=== PATIENT | male | born 1985 | race Caucasian/White ===

== ENCOUNTER 2024-01-04 08:28 | Inpatient (IN) | payer BC, SELFPAY ==
[2024-01-04] VITALS (9 sets, daily range): BP systolic 130–143; BP diastolic 89–109; PULSE 62–112; RESP 16–18; TEMP 36.4–37.1; O2SAT 98–99; BMI 23.7
--- NOTE | 2024-01-04 08:38 | EX.ED.SAOD ---
HPI History of Present Illness Chief Complaint: Substance Abuse Informant: patient Narrative Narrative: Here to help with alcohol detox. He is drink for years. He drinks daily more so recently. 8-10 twisted teas daily. He sometimes wakes up with tremors. No alcohol withdrawal seizure history. Last drink was 7 PM yesterday. Marijuana use 3 times a week. Reports anxiety depression symptoms not formally diagnosed. He has been had mandatory AA years ago. He has not seen a counselor or psychiatrist. He denies any suicidal homicidal ideations. Denies any auditory or visual hallucinations. Has not had alcohol assistance programs in the past. [facility] Medical History Collar bone fracture Home Medications NK 01/04/24 [History Last Taken Unknown] Allergy/AdvReac Type Severity Reaction Status Date / Time prednisone AdvReac Severe legs give Verified 01/04/24 08:58 out Surgical History History of right hip replacement Social History (Updated 01/04/24 @ 09:[address] Rajani Christian DO) household members: family Smoking Status: Current every day smoker tobacco type: cigarettes and smokeless tobacco alcohol intake: current alcohol intake frequency: 3 or more drinks per day Previous attempts at quittin details: 8-10 twisted teas daily substance use type: marijuana and other details: Huffs substances ROS ROS ED Constitutional Constitutional ED: Denies chills, fever(s) or sweats Eyes Eyes: Denies change in vision ENT ENT ED: Denies dysphagia or sore throat Cardiovascular Cardiovascular: Denies chest pain, leg edema, palpitations or racing heartbeat Respiratory/Chest Respiratory/Chest: Denies cough, dyspnea or dyspnea on exertion Gastrointestinal Gastrointestinal: Denies abdominal pain, diarrhea, nausea or vomiting Genitourinary Genitourinary ED: Denies dysuria, hematuria or urinary frequency Musculoskeletal Musculoskeletal: Denies back pain, extremity pain or neck pain Integumentary Denies rash or wounds Neurologic Neurologic: Denies headache(s), paresthesias or weakness EXAM Physical Exam Const Vital Signs: 01/04/24 08:29 Temperature 97.6 F L Temperature Source Temporal Pulse Rate 112 H Respiratory Rate 16 Blood Pressure 142/109 H Blood Pressure Mean 120 Pulse Ox 99 Oxygen Delivery Method Room Air Positive well nourished and well developed General Appearance ED: well developed and NAD HEENT Reports moist mucous membranes normocephalic and atraumatic Eyes PERRL, EOMs intact bilaterally and conjunctivae normal General Eye ED: Yes normal appearance of both eyes Neck no lymphadenopathy and supple General: Negative for tenderness Chest Wall Chest: Negative for tenderness Resp normal respiratory effort and normal air movement Effort and Inspection: symmetric chest movement; Negative for respiratory distress Cardio regular rhythm and no murmurs Rate: tachycardic Peripheral Pulses: pulses 2+ throughout GI normal to inspection, nondistended, normoactive bowel sounds and non-tender Palpation: Negative for guarding or rebound tenderness present Back/Spine no CVA tenderness and no thoracic nor lumbar tenderness Extremity normal to inspection General Extremety ED: Negative for edema or tenderness General Extremity: Negative for edema Neuro oriented x3 and no sensory deficits noted Sensorium / Orientation: awake and alert Skin no rashes or lesions noted and no wounds MDM MDM MDM Narrative Medical decision making narrative: Interventions / MDM: Differential diagnosis: Alcohol dependence, alcohol withdrawal Diagnosis considered but do not suspect: N/A My EKG interpretation: N/A Imaging independently reviewed and interpreted by myself: N/A External documents reviewed: N/A Test considered but not ordered:N/A ED course: Tachycardic on arrival, nontoxic, no tremors. Labs were drawn. Will plan for admission to assist with alcohol dependence. I discussed with hospitalist Dr. Rajani Crhistian for admission. Labs 3 potassium 3.1 creatinine 1.32. Oral replacement given. Fluids were started with renal insufficiency. Alcohol returned negative. Patient will be admitted to medical floor for further management. Re-evaluation: stable Disposition discussed with patient/family/significant other: Patient Case discussed with consulting clinician: Hospitalist This note was generated with [employer] dictation software. It may contain incorrect words, spelling, and punctuation that were not noted in checking the note before signing. Lab Data Attestation: I reviewed the patient's lab results. Labs: Laboratory Results - last 24 hr 01/04/24 08:45 WBC 11.1 H RBC 5.65 Hgb 17.3 H Hct 50.9 MCV 90.1 MCH 30.6 MCHC 34.0 RDW Std Deviation 43.8 RDW Coeff of Srinivas 13.2 Plt Count 272 MPV 9.6 Immature Gran % (Auto) 0.400 Neut % (Auto) 77.4 H Lymph % (Auto) 13.0 L [place] % (Auto) 6.9 Eos % (Auto) 1.6 Baso % (Auto) 0.7 Absolute Neuts (auto) 8.6 H Absolute Lymphs (auto) 1.44 Nucleated RBC % 0 Sodium 139 Potassium 3.1 L Chloride 105 Carbon Dioxide 26.0 Anion Gap 8 BUN 6 L Creatinine 1.32 H Estim Creat Clear Calc 83.28 Est GFR (MDRD) Af Amer 78 Est GFR (MDRD) Non-Af 64 BUN/Creatinine Ratio 4.5 L Glucose 132 H Calcium 9.6 Total Bilirubin 2.00 H Direct Bilirubin 0.38 H AST 23 ALT 24 Alkaline Phosphatase 99 Total Protein 8.5 H Albumin 4.4 Globulin 4.1 Ethyl Alcohol < 3.0 Discharge Plan Dx/Rx/DC Orders Clinical Impression: Alcohol dependence, Renal insufficiency, Hypokalemia Disposition Disposition: Acute Care [facility] Discharge Date/Time: 01/04/24 11:06
[2024-01-04 08:56] LABS: Absolute Lymphocyte Count 1.44 X10^3/uL (0.83-4.51); Absolute Neutrophil Count 8.6 X10^3/uL (2.0-7.7); Basophil# 0.08 X10^3/uL; Basophil% 0.7 % (0-1); Eosinophil# 0.18 X10^3/uL; Eosinophils% 1.6 % (0-5); Hematocrit 50.9 % (40-54); Hemoglobin 17.3 g/dL (13.0-16.5); Lymphocyte # 1.44 X10^3/ul (0.83-4.51); Mean Corpuscular Hgb 30.6 pg (27.0-32.0); Mean Corpuscular Volume 90.1 fL (80-94); Mean Platelet Vol. 9.6 fl (6.2-12.0); Monocyte# 0.76 X10^3/uL; Monocyte% 6.9 % (0-10); NRBC Flagged by Analyzer 0 % (0-5); Neutrophil # 8.56 X10^3/uL (2.7-7.7); Neutrophil % 77.4 % (47-70); Platelet Count 272 K/mm3 (150-450); RBC Distribution Width CV 13.2 % (11.6-14.6); RBC Distribution Width SD 43.8 fl (35.1-43.9); Red Blood Count 5.65 M/mm3 (4.6-6.2); White Blood Count 11.1 K/mm3 (4.4-11.0)
--- NOTE | 2024-01-04 09:03 | HP.PCM.HOS_ITS ---
HPI - General General Date of Admission: 01/04/24 Date of Service: 01/04/24 Chief Complaint: EtOH Detox HPI Narrative BOZENA HERNANDEZ, is a 38 M who presented to the emergency department at [facility] on 01/04/2024 requesting detoxification from alcohol. Patient admits he has been drinking for years and typically drinks 8-10 twisted teas daily. He does report that he intermittently will wake up with tremors but never has had any withdrawal seizures. His last drink was 7 PM the day prior to admission. He also admits to marijuana use about 3 times weekly. He has significant anxiety and depression type symptoms but has never been formally diagnosed and has never been through counseling or is seeing a psychiatrist. He had mandatory AA several years ago but has not ever been through an alcohol assistance program in the past. [facility] Medical History Collar bone fracture Home Medications NK 01/04/24 [History Last Taken Unknown] Allergy/AdvReac Type Severity Reaction Status Date / Time prednisone AdvReac Severe legs give Verified 01/04/24 08:58 out Surgical History History of right hip replacement Social History Smoking Status: Current every day smoker tobacco type: smokeless tobacco Vital Signs Vital Signs Vital Signs: 01/04/24 08:29 Temperature 97.6 F L Temperature Source Temporal Pulse Rate 112 H Respiratory Rate 16 Blood Pressure 142/109 H Blood Pressure Mean 120 Pulse Ox 99 Oxygen Delivery Method Room Air Weight Weight: 79.379 kg Body Mass Index (BMI) 23.7 Results Lab / Micro Data 01/04/24 08:45 01/04/24 08:45 Labs: Laboratory Results - last 24 hr 01/04/24 08:45: WBC 11.1 H, RBC 5.65, Hgb 17.3 H, Hct 50.9, MCV 90.1, MCH 30.6, MCHC 34.0, RDW Std Deviation 43.8, RDW Coeff of Srinivas 13.2, Plt Count 272, MPV 9.6, Immature Gran % (Auto) 0.400, Neut % (Auto) 77.4 H, Lymph % (Auto) 13.0 L, [place] % (Auto) 6.9, Eos % (Auto) 1.6, Baso % (Auto) 0.7, Absolute Neuts (auto) 8.6 H, Absolute Lymphs (auto) 1.44, Nucleated RBC % 0
--- NOTE | 2024-01-04 09:03 | PCM.HP.STD ---
HPI - General General Date of Admission: 01/04/24 Date of Service: 01/04/24 Chief Complaint: EtOH Detox HPI Narrative BOZENA HERNANDEZ, is a 38 M who presented to the emergency department at [facility] on 01/04/2024 requesting detoxification from alcohol. Patient admits he has been drinking for years and typically drinks 8-10 twisted teas daily. He does report that he intermittently will wake up with tremors but never has had any withdrawal seizures. His last drink was 7 PM the day prior to admission. He also admits to marijuana use about 3 times weekly. He has significant anxiety and depression type symptoms but has never been formally diagnosed and has never been through counseling or is seeing a psychiatrist. He had mandatory AA several years ago but has not ever been through an alcohol assistance program in the past. He states the longest he was sober was about 6 months while he was in [facility] but this was several years ago. He also reports that he feels depressed but does not have any suicidal or homicidal ideations. He has never been on any medications for depression. Patient also admits to huffing substances because it helps him sleep and helps treat his depression and anxiety. Vital signs on presentation showed temperature 97.6, heart rate 112, blood pressure 142/109, respirate 16 oxygen saturations are 99% on room air. CBC shows a mild leukocytosis and elevated hemoglobin at 17.3. Patient smokes about 2 packs of cigarettes daily so this is either he will contraction from mild dehydration or this may be his baseline. We have no previous labs to compare. He does appear to have some mild ADONAY with a creatinine of 1.32 and hypokalemia with a potassium of 3.1 on his BMP. Liver functions are still pending. At the alcohol level was less than 3. [facility] Medical History Collar bone fracture Home Medications NK 01/04/24 [History Last Taken Unknown] Allergy/AdvReac Type Severity Reaction Status Date / Time prednisone AdvReac Severe legs give Verified 01/04/24 08:58 out no significant family history Surgical History History of right hip replacement Social History (Updated 01/04/24 @ 09:[address] Rajani Gino, DO) household members: family Smoking Status: Current every day smoker tobacco type: cigarettes Smoking packs per day: 2 Smoking cigarettes per day: 40.0 and smokeless tobacco alcohol intake: current alcohol intake frequency: 3 or more drinks per day Previous attempts at quittin details: 8-10 twisted teas daily substance use type: marijuana and other details: Huffs substances ROS Constitutional Constitutional: Reports fatigue and malaise; Denies anorexia, change in weight, chills, fever(s), night sweats, weakness or other Eyes Eyes: Denies blurry vision, change in eye color, change in vision, discharge from eye(s), double vision, erythema, eye pain, loss of vision or other ENT HEENT: Denies abnormal hearing, dysphagia, ear pain, epistaxis, headache(s), hearing loss, nasal congestion, nasal discharge, post nasal drip, sinus pressure, sore throat or other Cardiovascular Cardiovascular: Denies chest pain, claudication, dyspnea on exertion, edema, lightheadedness, orthopnea, palpitations, paroxysmal nocturnal dyspnea, rapid heart rate, syncope or other Respiratory/Chest Respiratory/Chest: Denies cough, dyspnea, excessive phlegm production, hemoptysis, productive cough, shortness of breath at rest, shortness of breath with exertion, wheezing or other Gastrointestinal Gastrointestinal: Denies abdominal pain, coffee ground emesis, constipation, diarrhea, dyspepsia, hematemesis, hematochezia, loose stools, melena, nausea, vomiting or other Genitourinary Genitourinary: Denies burning urination, difficulty urinating, dysuria, hematuria, nocturia, urinary frequency, urinary hesitancy, urinary incontinence, urinary urgency or other Musculoskeletal Musculoskeletal: Reports back pain, joint pain and joint stiffness; Denies arthralgias, joint swelling, myalgias, neck pain or other Neurologic Neurologic: Denies abnormal gait, abnormal speech, confusion, disequilibrium, dizziness, focal weakness, headache(s), numbness, paresthesias, seizure-like activity, seizures, syncope, tingling, tremor(s) or other Psychiatric Psychiatric: Reports anxiety and depression; Denies homicidal ideation, suicidal ideation or other Endocrine Endocrinology: Denies change in body appearance, cold intolerance, excessive sweating, heat intolerance, polydipsia, polyuria or other Hematologic/Lymphatic Hematologic/Lymphatic: Denies anemia, easy bleeding, easy bruising, lymphadenopathy or other Allergic/Immunologic Allergic/Immunologic: Denies rhinitis, hives, eczemia, asthma or other Vital Signs Vital Signs Vital Signs: 01/04/24 08:29 Temperature 97.6 F L Temperature Source Temporal Pulse Rate 112 H Respiratory Rate 16 Blood Pressure 142/109 H Blood Pressure Mean 120 Pulse Ox 99 Oxygen Delivery Method Room Air Weight Weight: 79.379 kg Body Mass Index (BMI) 23.7 Physical Exam Const alert, oriented x3, no apparent distress, average body habitus and well nourished; Negative for healthy appearing Constitutional Narrative: Anxious appearing, middle-aged, white male, sitting up in bed, brother at bedside, patient appears comfortable and nontoxic General Appearance: cooperative HEENT normocephalic, head/scalp atraumatic, hearing grossly normal bilaterally and moist oral mucous membranes HEENT Narrative: Dentition is good, Mallampati is 2-3, no thrush Eyes PERRL, EOMs intact bilaterally and conjunctivae normal Eyes Narrative: No scleral icterus Neck no lymphadenopathy and supple Neck Narrative: Trachea midline, no thyroid enlargement Resp normal respiratory effort, no retractions, no use of accessory muscles and clear to auscultation bilaterally Auscultation: Negative for rales, rhonchi or wheezes Cardio regular rhythm, S1 normal heart sound, S2 normal heart sound, no murmurs, no rub, no gallops and no clicks Cardio Narrative: Mild tachycardia GI normal to inspection, nondistended, normoactive bowel sounds, soft to palpation and non-tender Extremity no clubbing, cyanosis or edema Extremity Narrative: Pedal pulses are 2+ Skin no rashes or lesions noted, no wounds, skin turgor normal, no jaundice, no petechiae and no mottling Neuro oriented x3, moves all extremities and no focal motor deficits Speech: speech normal Psych Psych Narrative: Eye contact is good, patient interacts appropriately but does appear quite anxious Mood & Affect: anxious Results Lab / Micro Data 01/04/24 08:45 01/04/24 08:45 Labs: Laboratory Results - last 24 hr 01/04/24 08:45: WBC 11.1 H, RBC 5.65, Hgb 17.3 H, Hct 50.9, MCV 90.1, MCH 30.6, MCHC 34.0, RDW Std Deviation 43.8, RDW Coeff of Srinivas 13.2, Plt Count 272, MPV 9.6, Immature Gran % (Auto) 0.400, Neut % (Auto) 77.4 H, Lymph % (Auto) 13.0 L, [place] % (Auto) 6.9, Eos % (Auto) 1.6, Baso % (Auto) 0.7, Absolute Neuts (auto) 8.6 H, Absolute Lymphs (auto) 1.44, Nucleated RBC % 0 Assessment & Plan Assessment/Plan (1) Hypokalemia: (2) Alcohol dependence: (3) Creatinine elevation: (4) Desire for detoxification: PLAN: Plan Alcohol abuse with pending withdrawal -Request for detoxification -Drinks 8-10 twisted teas daily -Never been through detox -Start phenobarbital taper -Thiamine and folate -Supportive medication for symptom management -CIWA protocol with as needed Ativan -180 consultation -Strongly would encourage inpatient treatment Hypokalemia -40 mEq p.o. potassium and repeat in a.m. -Check a.m. magnesium level Elevated serum creatinine -Baseline is unknown however was 1.32 on admission and suspect he may be dehydrated as his CBC looks hemoconcentrated -Will give IV fluids with LR x 1 L -Repeat lab in a.m. Depression/anxiety -Start Zoloft 75 mg nightly -Encouraged outpatient follow-up with counseling and possibly psychiatry Chronic low back pain -As needed Tylenol available -Recommend outpatient follow-up with orthopedic spine versus neurosurgery History of right hip replacement -Traumatic -Surgery was in 2018 -Patient attributes this to his ongoing musculoskeletal pain Polysubstance abuse -In addition alcohol patient also admits to marijuana use and huffing substances -Recommend cessation Tobacco abuse -Patient reports he smokes about 2 packs of cigarettes daily as well as uses smokeless tobacco -Nicotine patch made available next-recommend cessation DVT prophylaxis -Low risk -Recommend early and frequent ambulation CODE STATUS -Full code Charges/Coding Visit Charges Inpatient E&M: 94922 Init Hosp L2
[2024-01-04 09:13] LABS: Alcohol, Blood (Medical)-Serum < 3.0 mg/dL
[2024-01-04 09:15] LABS: Anion Gap 8 (5-15); BUN 6 mg/dL (7-18); BUN/Creat Ratio 4.5 RATIO (10-20); Calcium,Total 9.6 mg/dL (8.5-10.1); Chloride 105 mmol/L (98-107); Creatinine, Serum 1.32 mg/dL (0.70-1.30); EST Glomerular Filtration Rate 64 mL/min (>60); Est Glom Filt Rate - Afr Amer 78 mL/min (>60); Estimated Creatinine Clearance 83.28 ml/min; Glucose 132 mg/dL (74-106); Potassium 3.1 mmol/L (3.5-5.1); Sodium Level 139 mmol/L (136-145)
[2024-01-04 09:25] LABS: AST(SGOT) 23 U/L (15-37); Alanine Aminotransfer ALT/SGPT 24 U/L (16-61); Albumin, Serum 4.4 g/dL (3.2-5.0); Alkaline Phosphatase 99 U/L (45-117); Bilirubin, Direct 0.38 mg/dL (0.00-0.30); Globulin 4.1 g/dL (2.2-4.2); Protein, Total 8.5 g/dL (6.4-8.2)
[2024-01-04] MEDS: Potassium Chloride Oral Tablet 20 MEQ 40 MEQ PO (09:59)
[2024-01-04] MEDS: 0.9% Normal Saline (1000mL) 1,000 ML 150 ML IV (10:00)
[2024-01-04 10:09] LABS: Amphetamine Urine VISTA NEGATIVE (<1000 ng/mL); Barbiturate Urine VISTA NEGATIVE (< 200 ng/mL); Benzodiazepine Urine VISTA NEGATIVE (< 200 ng/mL); Cocaine Urine VISTA NEGATIVE (< 300 ng/mL); Ecstacy Urine VISTA NEGATIVE (< 500 ng/mL); Methadone Urine VISTA NEGATIVE (< 300 ng/mL); PCP Urine VISTA NEGATIVE (< 25 ng/mL); THC Urine VISTA NEGATIVE (< 50 ng/mL); Vista UDS pH Range 6
--- NOTE | 2024-01-04 11:47 | NURSING ---
pt states he drinks 8-12 (12oz) beers a day, last drink was yesterday), smokes marijuana approx 3 times a week (last use was about 3-4days ago), smokes 1.5 ppd of cigarettes, uses inhalant (duster) 4 cans throughout the days (last use last night).
[2024-01-04] MEDS: Lactated Ringers 1,000 ML 100 ML IV (11:55)
[2024-01-04] MEDS: Gabapentin 300 MG Capsule PO (11:58)
[2024-01-04] MEDS: Phenobarbital 32.4 MG Tablet 64.7999999999999972 MG PO ×3 (11:58→20:21)
[2024-01-04] MEDS: Acetaminophen 325 MG Tablet 650 MG PO ×2 (11:58→20:37)
[2024-01-04] MEDS: Dicyclomine 10 MG Capsule 20 MG PO (11:58)
--- NOTE | 2024-01-04 15:13 | NURSING ---
computer downtime approx [id number].
[2024-01-04] MEDS: hydrOXYzine PAM 25 MG Capsule 50 MG PO ×2 (15:52→20:37)
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
[2024-01-05] VITALS (8 sets, daily range): BP systolic 110–137; BP diastolic 70–93; PULSE 62–105; RESP 16–18; TEMP 36.2–36.6; O2SAT 93–99
[2024-01-05] MEDS: traZODone 100 MG Tablet PO (00:15)
[2024-01-05] MEDS: Phenobarbital 32.4 MG Tablet 64.7999999999999972 MG PO ×7 (00:15→23:31)
[2024-01-05 07:29] LABS: Anion Gap 8 (5-15); BUN 6 mg/dL (7-18); BUN/Creat Ratio 6.4 RATIO (10-20); Calcium,Total 8.6 mg/dL (8.5-10.1); Chloride 108 mmol/L (98-107); Creatinine, Serum 0.93 mg/dL (0.70-1.30); EST Glomerular Filtration Rate 96 mL/min (>60); Est Glom Filt Rate - Afr Amer 116 mL/min (>60); Estimated Creatinine Clearance 118.21 ml/min; Glucose 118 mg/dL (74-106); Magnesium 2.4 mg/dL (1.6-2.6); Potassium 3.3 mmol/L (3.5-5.1); Sodium Level 141 mmol/L (136-145)
[2024-01-05] MEDS: Sertraline 50 MG Tablet 75 MG PO (10:19)
[2024-01-05] MEDS: Potassium Chloride Oral Tablet 20 MEQ 60 MEQ PO (10:20)
[2024-01-05] MEDS: Thiamine Hydrochloride 100 MG Tablet PO (10:28)
[2024-01-05] MEDS: Folic Acid 1 MG Tablet PO (10:28)
--- NOTE | 2024-01-05 11:06 | ADDICTION ---
This commercial lines underwriter met with PT to conduct ASAM, MSE, AUDIT assessments and to plan for d/c. PT A+Ox4 and participated actively. All assessments completed. PT plans to f/u with [facility] for follow-up treatment services. He would like to start the Vivitrol shot. Assessment has been completed and he meets criteria for 1st injection prior to d/c. [facility] will continue the shots. PT did not indicate a need for transportation post d/c from [facility].
--- NOTE | 2024-01-05 13:10 | PCM.PN.HOSP ---
Reason for Visit Reason for Visit: EtOH detox Subjective Subjective Patient states he feels pretty chill right now. Does not have any withdrawal symptoms currently. Overall much better than yesterday. He is talk to 180 and is a candidate for Vivitrol so we will go ahead and plan on probable discharge tomorrow as long as he continues to do well with Vivitrol prior to discharge and [facility] where he will continue Vivitrol. Objective Data Objective Data Vital Signs: Vital Signs Temp Pulse Resp BP Pulse Ox O2 Del Method 97.8 F 105 H 16 137/87 H 93 Room Air 01/05/24 10:05 01/05/24 10:05 01/05/24 10:05 01/05/24 10:05 01/05/24 10:05 01/05/24 10:05 Oxygen Delivery Method Room Air Weight: 79.379 kg Body Mass Index (BMI) 23.7 Intake & Output: Intake and Output for Last 24 Hours 01/03/24 01/04/24 01/05/24 23:59 23:59 23:59 Intake Total 2290 / 2290 Balance 2290 / 2290 Lab / Micro Data 01/04/24 08:45 01/05/24 06:10 Labs: Laboratory Results - last 24 hr 01/05/24 06:10: Sodium 141, Potassium 3.3 L, Chloride 108 H, Carbon Dioxide 25.0, Anion Gap 8, BUN 6 L, Creatinine 0.93, Estim Creat Clear Calc 118.21, Est GFR (MDRD) Af Amer 116, Est GFR (MDRD) Non-Af 96, BUN/Creatinine Ratio 6.4 L, Glucose 118 H, Calcium 8.6, Magnesium 2.4 Physical Exam Const alert, oriented x3, no apparent distress, average body habitus, healthy appearing and well nourished Constitutional Narrative: Calm appearing, middle-aged, white male, sitting up in bed, watching television, patient appears comfortable and nontoxic General Appearance: cooperative HEENT normocephalic, head/scalp atraumatic and moist oral mucous membranes Resp normal respiratory effort, no retractions, no use of accessory muscles and clear to auscultation bilaterally Auscultation: Negative for rales, rhonchi or wheezes Cardio regular rate, regular rhythm, S1 normal heart sound, S2 normal heart sound, no murmurs, no rub, no gallops and no clicks GI normal to inspection, nondistended, normoactive bowel sounds, soft to palpation and non-tender Extremity no clubbing, cyanosis or edema Extremity Narrative: Pedal pulses are 2+ Neuro oriented x3 and moves all extremities Speech: speech normal Psych affect normal Psych Narrative: Eye contact is good, patient interacts appropriately and is much calmer today than he was yesterday Assessment & Plan Assessment/Plan (1) Hypokalemia: (2) Alcohol dependence: (3) Creatinine elevation: (4) Desire for detoxification: PLAN: Plan Alcohol abuse with pending withdrawal -Had been drinking 8-10 twisted teas daily -Never been through detox -Continue -Thiamine and folate -Supportive medication for symptom management -CIWA protocol with as needed Ativan -180 has evaluated patient and deemed him appropriate for Vivitrol and suspects he should be good for discharge tomorrow. Will plan on discharge tomorrow morning after Vivitrol dose can be given Hypokalemia - still little bit low at 3.3 -Redose 40 mEq p.o. potassium -Check a.m. level -Magnesium is within normal limits Elevated serum creatinine -Normalized Depression/anxiety -Continue Zoloft 75 mg nightly -Encouraged outpatient follow-up with counseling and possibly psychiatry--> will give Dr. Irwin's information at discharge Chronic low back pain -As needed Tylenol available -Recommend outpatient follow-up with orthopedic spine versus neurosurgery History of right hip replacement -Traumatic -Surgery was in 2018 -Patient attributes this to his ongoing musculoskeletal pain Polysubstance abuse -In addition alcohol patient also admits to marijuana use and huffing substances -Recommend cessation Tobacco abuse -Patient reports he smokes about 2 packs of cigarettes daily as well as uses smokeless tobacco -Nicotine patch made available -recommend cessation DVT prophylaxis -Low risk -Recommend early and frequent ambulation CODE STATUS -Full code Charges/Coding Visit Charges Inpatient E&M: 95381 Subs Hosp L2
--- NOTE | 2024-01-05 13:41 | CHAPLAIN ---
Type of Pastoral Visit ___ Initial Visit _x__ Follow-up Visit ___ On-call Visit ___ General Patient Visit ___ Spiritual Assessment ___ Family Conference ___ Bereavement ___ Rapid Response ___ Code Blue ___ Other (describe below) Pastoral Care Referral From _x__ Patient ___ Family ___ Nurse ___ Physician ___ Pulper Tender ___ Part Maker ___ Other (describe below) Sacrament/Intervention _x__ Active listening ___ Anointing ___ Faith ___ Bereavement ___ Communion ___ Kalie exploration ___ ___ Life review ___ Prayer ___ Reconciliation ___ Sacrament of Sick _x__ Supportive presence ___ Wedding ___ Other (describe below) Pastoral Comments patient is sitting looking out the window; pt is asked about his evening and his feelings so far; pt stated that he slept a very long time, is feeling some better, and has had some opportunity to read in the Bible which was beneficial; pt is open to support and casual conversation; lunch tray came and pt is ready to eat so ended this visit
[2024-01-05] MEDS: MELATONIN 3 MG TABLET PO (23:33)
[2024-01-06] MEDS: Phenobarbital 32.4 MG Tablet 64.7999999999999972 MG PO ×2 (04:01→06:37)
[2024-01-06 04:02] VITALS: BP 120/84; PULSE 73; RESP 16; TEMP 36.6; O2SAT 97
[2024-01-06 09:10] VITALS: O2SAT 97
[2024-01-06 09:49] LABS: Anion Gap 8 (5-15); BUN 6 mg/dL (7-18); BUN/Creat Ratio 6.8 RATIO (10-20); Calcium,Total 8.7 mg/dL (8.5-10.1); Chloride 107 mmol/L (98-107); Creatinine, Serum 0.88 mg/dL (0.70-1.30); EST Glomerular Filtration Rate 102 mL/min (>60); Est Glom Filt Rate - Afr Amer 124 mL/min (>60); Estimated Creatinine Clearance 124.92 ml/min; Glucose 105 mg/dL (74-106); Potassium 3.7 mmol/L (3.5-5.1); Sodium Level 137 mmol/L (136-145)
--- NOTE | 2024-01-06 09:49 | PCM.DC.SUM ---
Providers Date of Admission: 01/04/24 Date of Discharge: 01/06/24 Primary Care Physician: No Primary Care Phys Reason For Visit: ETOH DETOX Diagnosis Discharge Diagnosis (1) Hypokalemia: Status: Acute Code(s): E87.6 - Hypokalemia (2) Alcohol dependence: Status: Acute Code(s): F10.20 - Alcohol dependence, uncomplicated (3) Creatinine elevation: Status: Acute (4) Desire for detoxification: Status: Acute Medications at Discharge Home Medications NK 01/04/24 sertraline 50 mg tablet 75 mg (1.5 x 50 mg) PO DAILY #30 tabs 01/06/24 Hospital Course Operations None Procedures None Summary of Care Provided Minutes Spent on Discharge: 30 Hospital Course: Mr. Martinez is a 38-year-old white male who presented to the emergency department at [facility] on 01/04/2024 requesting detoxification from alcohol. On admission he admitted he had been drinking for years and typically was drinking 8-10 twisted teas daily. He reported that he intermittently will wake up with tremors but never had had any withdrawal seizures. His last drink was at 7 PM on the day prior to admission. He also admitted to marijuana use of about 3 times weekly. He complained of significant anxiety and depression but had never been formally diagnosed or been through counseling or seeing a psychiatrist. He has had mandatory AA in the past several years ago but had never been through an alcohol assistance program previously. He reported the longest he had been sober was about 6 months when he was in intermediate several years ago. He denied any suicidal or homicidal daily ideations and he never been on any medication for depression. He also admitted to huffing substances and stated he did this because it helps him sleep and helps him to treat his anxiety and depression. Vital signs on admission showed a temperature of 97.6, heart rate 112, blood pressure 142/109, respiratory rate was 16 and oxygen saturation was 99% on room air. CBC showed a mild leukocytosis and an elevated hemoglobin that resolved with some gentle IV fluids. He also had some mild ADONAY with a serum creatinine of 1.32 and hypokalemia with a potassium of 3.1. Liver functions are unremarkable. His alcohol level on admission was less than 3. He was admitted to the medical floor and placed on a phenobarbital taper. He was given 1 L of IV fluids and his potassium was replaced. Magnesium level was obtained and found to be normal. With regards to his detox he did extremely well. We did place him on some Zoloft at 75 mg nightly to help with his depression and anxiety and I have encouraged him to follow-up with a psychiatrist at outpatient. I did give him a referral to see Dr. Solis Irwin. Prescription for Zoloft with 2 refills was given at the time of discharge. I have advised him to obtain a primary care physician for outpatient follow-up for general medical issues. Patient was discharged home in stable condition on 01/06/2024 after he was given a Vivitrol injection. [facility] will be [facility] and counseling services. Discharge diagnoses: Alcohol abuse Acute alcohol withdrawal-resolved Hypokalemia-resolved Elevated serum creatinine-resolved Depression Anxiety Chronic low back pain History of right hip replacement Polysubstance abuse Tobacco abuse Physical Exam Narrative Patient is feeling much better overall. Const alert, oriented x3, no apparent distress, average body habitus, no limitations, healthy appearing and well nourished Constitutional Narrative: Calm appearing, middle-aged, white male, sitting up in bed, watching television, patient appears comfortable and nontoxic, no tremor noted on exam General Appearance: cooperative, comfortable, well kempt and well developed Orientation / Consciousness: awake, oriented to person, oriented to place and oriented to time Exam Limitations: no limitations HEENT normocephalic, head/scalp atraumatic, hearing grossly normal bilaterally and moist oral mucous membranes Eyes PERRL, EOMs intact bilaterally and conjunctivae normal Eyes Narrative: No scleral icterus Neck no lymphadenopathy and supple Neck Narrative: Trachea midline, no thyroid enlargement Resp normal respiratory effort, no retractions, no use of accessory muscles and clear to auscultation bilaterally Auscultation: Negative for rales, rhonchi or wheezes Cardio regular rate, regular rhythm, S1 normal heart sound, S2 normal heart sound, no murmurs, no rub, no gallops and no clicks GI normal to inspection, nondistended, normoactive bowel sounds, soft to palpation and non-tender Extremity no clubbing, cyanosis or edema Extremity Narrative: Pedal pulses are 2+ Neuro oriented x3, moves all extremities and no focal motor deficits Speech: speech normal Psych affect normal Psych Narrative: Eye contact is good, patient interacts appropriately, mood seems stable Weight / BMI Weight Weight: 79.379 kg Body Mass Index (BMI) 23.7 ABG / Lab / Microbiology Data 01/04/24 08:45 01/06/24 07:24 D/C Instructions Discharge Diet: No restrictions Discharge Activity: Return to Normal Activity Meaningful Use Info Meaningful Use Diagnoses (Choose all that apply): None applicable Discharge Plan Admission Admit Date/Time: 01/04/24 08:59 Primary Reason for Your Visit: Alcohol detox Attending Provider: Rajani Christian Primary Care Provider: Care Physician,No Primary Instructions Additional Instructions / Restrictions: 1. Follow[facility]up at [facility] as directed by addiction medicine Discharge Orders/Prescriptions Prescriptions: New sertraline 50 mg Tablet 75 mg PO DAILY Qty: 30 1RF No Action NK Referrals / Follow Up: Solis Irwin DO [Med Staff - Sales Performance Analyst] - Within 1 Month (Call to make appt) Care Physician,No Primary [Primary Care Provider] - Disposition Disposition (needs filled in before D/C Order can be placed): Home, Self Care Charges/Coding Visit Charges Inpatient E&M: 19647 Disch Hosp
[2024-01-06 10:38] VITALS: BP 133/85; PULSE 69; RESP 16; TEMP 36.7; O2SAT 98
[2024-01-06] MEDS: Folic Acid 1 MG Tablet PO (10:40)
[2024-01-06] MEDS: Thiamine Hydrochloride 100 MG Tablet PO (10:40)
[2024-01-06] MEDS: Sertraline 50 MG Tablet 75 MG PO (10:40)
[2024-01-06] MEDS: Naltrexone Microspheres 380 MG SYRINGE IM (11:29)
[2024-01-06] MEDS: Vivitrol Administration Needles 1 EACH MC (11:30)
[2024-01-06] MEDS: Vivitrol ID Card 1 EACH MC (11:39)
== END 2024-01-06 11:45 | disposition home or self-care (01) | DRG 897 ==
LOC: ED 09:19 → MS3 10:19
PROVIDERS: Admitting Provider Internal Medicine; Emergency Provider Emergency Medicine; Visit Provider Internal Medicine
DX: F10.239 Alcohol dependence with withdrawal, unspecified (principal); N17.9 Acute kidney failure, unspecified; F32.A Depression, unspecified; F12.10 Cannabis abuse, uncomplicated; E87.6 Hypokalemia; M54.50 Low back pain, unspecified; F17.210 Nicotine dependence, cigarettes, uncomplicated; F17.220 Nicotine dependence, chewing tobacco, uncomplicated; F41.9 Anxiety disorder, unspecified; G89.29 Other chronic pain
CPT/HCPCS: 36415; 80048; 80076; 80307; 80320; 83735; 85025; 94668; 99252; 99284; 99406; J7120; A4216; G0463; G0480